=== PATIENT | female | born 1945 ===

== ENCOUNTER 2023-10-19 16:00 | Emergency (ER) | payer SELFPAY ==
[2023-10-19] MEDS: HYDROmorphone 0.5 MG/0.5 ML Syringe SUBCUT STA (16:24)
[2023-10-19] MEDS: valACYclovir 500 MG Tab PO ONE ×2 (16:40)
[2023-10-19] MEDS: Gabapentin 100 MG Cap PO ONE (16:41)
== END 2023-10-19 16:45 | disposition home or self-care (01) ==
LOC: CC.ED 16:00
DX: B02.23 Postherpetic polyneuropathy (principal); Z88.8 Allergy status to other drugs, medicaments and biological substances; Z79.899 Other long term (current) drug therapy
CPT/HCPCS: 96372; 99283; 99284; A9270-GY; J1170